=== PATIENT | male | born 1980 ===

== ENCOUNTER 2018-06-03 07:11 | Emergency (ER) | payer BC, OTHER ==
[2018-06-03 07:16] VITALS: BP 129/84; PULSE 76; RESP 18; TEMP 97; O2SAT 98
[2018-06-03 07:17] VITALS: BMI 23.3
--- NOTE | 2018-06-03 08:05 | ED PDOC ---
HPI: General Adult Time Seen by Provider: 06/03/18 07:32 Chief Complaint (Nursing): Rabies Vaccine Series Chief Complaint (Provider): Rabies Vaccine Series History Per: Patient History/Exam Limitations: no limitations Additional Complaint(s): 37 year old male with no significant past medical history presents to the ED for follow up of rabies vaccination. On May 31, patient received his first injection at [facility] for a jane bite to the right index. He denies any other complaints. Past Medical History Reviewed: Historical Data, Nursing Documentation, Vital Signs Vital Signs: Last Vital Signs Temp 97 F L 06/03/18 07:15 Pulse 76 06/03/18 07:15 Resp 18 06/03/18 07:15 BP 129/84 06/03/18 07:15 Pulse Ox 98 06/03/18 07:15 - Medical History PMH: No Chronic Diseases - Surgical History Surgical History: No Surg Hx - Family History Family History: States: Unknown Family Hx - Immunization History Hx Tetanus Toxoid Vaccination: No Hx Influenza Vaccination: No Hx Pneumococcal Vaccination: No - Home Medications Home Medications: Ambulatory Orders Medication Instructions Recorded Amoxicillin/Clavulanate [Augmentin 1 tab PO BID #20 tab 05/31/18 875 MG-125 MG] Bacitracin OINT 1 applic TP BID #1 tube 05/31/18 Ibuprofen [Motrin] 600 mg PO Q6H PRN #20 tab 05/31/18 - Allergies Allergies/Adverse Reactions: Allergies Allergy/AdvReac Type Severity Reaction Status Date / Time No Known Allergies Allergy Verified 05/31/18 13:00 Review of Systems ROS Statement: Except As Marked, All Systems Reviewed And Found Negative Skin: Positive for: Other (cat bite) Physical Exam - Reviewed Nursing Documentation Reviewed: Yes Vital Signs Reviewed: Yes - Physical Exam Appears: Positive for: No Acute Distress (comfortable) Neurologic/Psych: Positive for: Alert, Oriented Comments: Superficial wound on right index finger, with full ROM, no swelling, no erythema - ECG O2 Sat by Pulse Oximetry: 98 (RA) Pulse Ox Interpretation: Normal Medical Decision Making Medical Decision Making: Time: 732 Initial Impression: follow up for second rabies vaccination Initial Plan: --Rabies vaccine Scribe Attestation: Documented by Maribel Oden, acting as a scribe for Cristal Womack MD Provider Scribe Attestation: All medical record entries made by the Scribe were at my direction and personally dictated by me. I have reviewed the chart and agree that the record accurately reflects my personal performance of the history, physical exam, medical decision making, and the department course for this patient. I have also personally directed, reviewed, and agree with the discharge instructions and disposition. Disposition - Clinical Impression Clinical Impression: Need for rabies vaccination, Cat bite - Patient ED Disposition Is Patient to be Admitted: No Doctor Will See Patient In The: Office Counseled Patient/Family Regarding: Studies Performed, Diagnosis, Need For Followup - Disposition Disposition: Routine/Home Disposition Time: 08:00 Condition: GOOD Additional Instructions: Follow up with your vaccination injection N3 as instructed. Instructions: Vaccines for Adults
== END 2018-06-03 08:25 | disposition home or self-care (01) ==
LOC: H.ER 07:11
DX: Z48.00 Encounter for change or removal of nonsurgical wound dressing (principal); Z23 Encounter for immunization; W55.01XA Bitten by cat, initial encounter